=== PATIENT | female | born 1990 | race Caucasian/White ===

== ENCOUNTER 2022-02-10 00:25 | Emergency (ER) | payer SELFPAY ==
[~2022-02-10] VITALS: Ht 162.6 cm; Wt 71.2 kg
[2022-02-10 00:34] VITALS: BP_SYST 106
--- NOTE | 2022-02-10 00:38 | NUR ---
HERE C/O MIGRAINE HEADACHE X2 DAYS, PT STATED THAT SHE TOOK NORCO AT HOME WITH NON RELIEF. PT DENIES FEVR. PMh:ASTHMA,MIGRAINE PT AAOX4, PENDING MD FLORES
--- NOTE | 2022-02-10 01:56 | NUR ---
Patient to ER bed 4 to gown for evaluation. Side rails up.
--- NOTE | 2022-02-10 02:25 | NUR ---
Report given to Ciera SOTO
[2022-02-10] MEDS ORDERED: ACETAMINOPHEN 500 MG TABLET PO ONE (03:45)
[2022-02-10] MEDS ORDERED: METOCLOPRAMIDE HCL 10 MG/2 ML VIAL IVP ONE (03:45)
[2022-02-10] MEDS ORDERED: NACL 0.9% 2,000 ML IV ONE (03:45)
--- NOTE | 2022-02-10 04:36 | NUR ---
Patient resting quietly. No acute distress noted. Vital signs within normal range.
[2022-02-10 04:37] VITALS: BP_SYST 115
--- NOTE | 2022-02-10 06:12 | NUR ---
Patient given written and verbal discharge instructions and verbalizes understanding. ER MD discussed with patient the results and treatment provided. Patient in stable condition. ID arm band removed. IV catheter removed intact and dressing applied, no active bleeding.Patient educated on pain management and to follow up with PMD. Pain Scale 0/10.Opportunity for questions provided and answered. Medication side effect fact sheet provided.
== END 2022-02-10 06:13 | disposition home or self-care (01) ==
LOC: SED 00:25
DX: G43.909 Migraine, unspecified, not intractable, without status migrainosus (principal); J45.909 Unspecified asthma, uncomplicated; Z88.0 Allergy status to penicillin
CPT/HCPCS: 99283; 96374; 96361; J2765; J7030

== ENCOUNTER 2022-06-17 08:16 | Emergency (ER) | payer OTHER ==
[~2022-06-17] VITALS: Ht 162.6 cm; Wt 66.2 kg
[2022-06-17 08:22] VITALS: BP_SYST 117
--- NOTE | 2022-06-17 08:24 | NUR ---
Patient to ER bed 08 to gown for evaluation. Side rails up.
--- NOTE | 2022-06-17 08:25 | NUR ---
PT CAME IN FROM HOME C/O LAC TO TOP OF LEFT HAND FROM SERATED KNIFE WHILE COOKING. NO ACTIVE BLEEDING ON ARRIVAL. PT IS AMBULATORY, AAOX4, VSS
--- NOTE | 2022-06-17 08:43 | NUR ---
ER at bedside examining patient.
[2022-06-17] MEDS ORDERED: DIPHTH,PERTUSS(ACELL),TET VAC 0.5 ML VIAL (Tdap) I.M. ONE (08:45)
[2022-06-17] MEDS ORDERED: BACITRACIN 1 GM OINT TP ONE (08:45)
--- NOTE | 2022-06-17 09:26 | NUR ---
Patient given written and verbal discharge instructions and verbalizes understanding. ER MD discussed with patient the results and treatment provided. Patient in stable condition. ID arm band removed. Patient educated on pain management and to follow up with PMD. Pain Scale 2/10. Opportunity for questions provided and answered. Medication side effect fact sheet provided.
[2022-06-17 11:42] VITALS: BP_SYST 117
== END 2022-06-17 11:42 | disposition home or self-care (01) ==
LOC: SED 08:16
DX: S61.412A Laceration without foreign body of left hand, initial encounter (principal); J45.909 Unspecified asthma, uncomplicated; Z88.0 Allergy status to penicillin; W26.0XXA Contact with knife, initial encounter; Y93.89 Activity, other specified; Y92.89 Other specified places as the place of occurrence of the external cause; Y99.8 Other external cause status
CPT/HCPCS: 90715; 99283